=== PATIENT | male | born 1975 | race Caucasian/White ===

== ENCOUNTER 2019-03-19 16:28 | Emergency (ER) | payer SELFPAY, BC, OTHER | END 2019-03-19 17:55 | disposition left against medical advice (07) | LOC: E/R 17:55 | DX: Z53.21 Procedure and treatment not carried out due to patient leaving prior to being seen by health care provider (principal) ==

== ENCOUNTER 2019-03-20 14:38 | Inpatient (IN) | payer BC, OTHER ==
[2019-03-20] MEDS ORDERED: LORAZEPAM 2 MG INJ (15:27)
[2019-03-20] MEDS: LORAZEPAM 2 MG INJ IM (15:35)
[2019-03-20 16:26] LABS: ADD MAN DIFF? NO
[2019-03-20 16:27] LABS: BASOPHILS % 0.7 % (0.0-2.0); EOSINOPHILS % 0.2 % (0.0-7.0); HEMATOCRIT 34.9 % (42.0-52.0); HEMOGLOBIN 11.9 g/dl (14.0-18.0); LYMPHOCYTES # 1.9 10^3/ul (0.8-2.9); LYMPHOCYTES % 32.2 % (15.0-51.0); MEAN CORPUSCULAR HEMOGLOBIN 28.7 pg (29.0-33.0); MEAN CORPUSCULAR HGB CONC 34.1 g/dl (32.0-37.0); MEAN CORPUSCULAR VOLUME 84.1 fl (82.0-101.0); MEAN PLATELET VOLUME 10.3 fl (7.4-10.4); MONOCYTE # 0.4 10^3/ul (0.3-0.9); MONOCYTES % 6.7 % (0.0-11.0); NEUTROPHIL # 3.6 10^3/ul (1.6-7.5); PLATELET COUNT 168 10^3/UL (140-415); RED BLOOD COUNT 4.15 10^6/ul (4.70-6.10); RED CELL DISTRIBUTION WIDTH 18.2 % (11.5-14.5)
[2019-03-20] MEDS: DIAZEPAM 5 MG/ML SYG IV ×3 (16:29→17:51)
[2019-03-20] MEDS: SOD CHLORIDE 0.9% 1,000 ML IV (16:29)
[2019-03-20 16:47] LABS: ALANINE AMINOTRANSFERASE 79 IU/L (13-69); ALBUMIN 4.2 g/dl (3.3-4.9); ALBUMIN/GLOBULIN RATIO 1.31; ALKALINE PHOSPHATASE 98 IU/L (42-121); ANION GAP 8 (5-13); ASPARTATE AMINO TRANSFERASE 156 IU/L (15-46); BILIRUBIN,INDIRECT 0.4 mg/dl (0-1.1); BILIRUBIN,TOTAL 0.4 mg/dl (0.2-1.3); BLOOD UREA NITROGEN 6 mg/dl (7-20); CALCIUM 8.5 mg/dl (8.4-10.2); CARBON DIOXIDE 35 mmol/L (21-31); CHLORIDE 98 mmol/L (97-110); CREATININE 0.63 mg/dl (0.61-1.24); Estimated GFR > 60 mL/min (>60); GLUCOSE 103 mg/dl (70-220); LIPASE 234 U/L (23-300); POTASSIUM 3.8 mmol/L (3.5-5.1); SODIUM 141 mmol/L (135-144); TOTAL PROTEIN 7.4 g/dl (6.1-8.1)
[2019-03-20] MEDS: DEXTROSE 5%-0.45% NACL 500 ML BAG IV (17:03)
[2019-03-20] MEDS: FOLIC ACID 1 MG TAB PO (17:03)
[2019-03-20] MEDS: THIAMINE 100 MG TAB PO ×2 (17:04→22:36)
[2019-03-20] MEDS ORDERED: ONDANSETRON 4 MG INJ IV (18:00)
[2019-03-20] MEDS ORDERED: ACETAMINOPHEN 325 MG TAB PO (18:00)
[2019-03-20] MEDS ORDERED: NACL 0.9% 3 ML SYG IV (18:30)
[2019-03-20] MEDS ORDERED: HYDROCODONE/APAP (5/325) TAB PO (18:30)
[2019-03-20] MEDS: BUPROPION (XL) 150 MG TAB PO ×2 (20:34→21:00)
[2019-03-20] MEDS: METHYLPHENIDATE 5 MG TAB PO (20:34)
[2019-03-20] MEDS: CHLORDIAZEPOXIDE 25 MG CAP PO ×2 (21:00→23:04)
[2019-03-20] MEDS ORDERED: BUPROPION (XL) 150 MG TAB PO (21:00)
[2019-03-20] MEDS: QUETIAPINE 100 MG TAB PO (22:40)
[2019-03-20] MEDS: LORAZEPAM 2 MG INJ IV (23:12)
[2019-03-21] MEDS: LORAZEPAM 2 MG INJ IV (00:40)
[2019-03-21 01:59] LABS: AMPHETAMINE/METHAMPHETAMINE Negative (NEGATIVE); BARBITURATES Negative (NEGATIVE); CANNABINOIDS Negative (NEGATIVE); COCAINE Negative (NEGATIVE); OPIATES Negative (NEGATIVE)
[2019-03-21 02:02] LABS: BENZODIAZEPINES Positive (NEGATIVE)
[2019-03-21] MEDS: DIAZEPAM 5 MG/ML SYG IV (02:05)
[2019-03-21] MEDS: METOPROLOL 5 MG INJ IV (02:32)
[2019-03-21 05:43] LABS: ADD MAN DIFF? NO
[2019-03-21 05:49] LABS: BASOPHILS % 0.4 % (0.0-2.0); EOSINOPHILS # 0.1 10^3/ul (0.0-0.5); HEMATOCRIT 27.7 % (42.0-52.0); HEMOGLOBIN 9.3 g/dl (14.0-18.0); LYMPHOCYTES # 2.1 10^3/ul (0.8-2.9); LYMPHOCYTES % 41.9 % (15.0-51.0); MEAN CORPUSCULAR HEMOGLOBIN 28.9 pg (29.0-33.0); MEAN CORPUSCULAR HGB CONC 33.6 g/dl (32.0-37.0); MEAN PLATELET VOLUME 10.9 fl (7.4-10.4); MONOCYTE # 0.4 10^3/ul (0.3-0.9); NEUTROPHIL # 2.3 10^3/ul (1.6-7.5); NEUTROPHILS % 47.5 % (39.0-77.0); PLATELET COUNT 107 10^3/UL (140-415); RED BLOOD COUNT 3.22 10^6/ul (4.70-6.10); RED CELL DISTRIBUTION WIDTH 18.6 % (11.5-14.5)
[2019-03-21 05:49] LABS: WHITE BLOOD COUNT 4.9 10^3/ul (4.8-10.8)
[2019-03-21] MEDS: PANTOPRAZOLE (EC) 40 MG TAB PO (06:00)
[2019-03-21 06:38] LABS: ALANINE AMINOTRANSFERASE 53 IU/L (13-69); ALBUMIN 3.5 g/dl (3.3-4.9); ALBUMIN/GLOBULIN RATIO 1.45; ALKALINE PHOSPHATASE 73 IU/L (42-121); ANION GAP 9 (5-13); ASPARTATE AMINO TRANSFERASE 106 IU/L (15-46); BILIRUBIN,INDIRECT 0.4 mg/dl (0-1.1); BILIRUBIN,TOTAL 0.4 mg/dl (0.2-1.3); BLOOD UREA NITROGEN 11 mg/dl (7-20); CALCIUM 9.4 mg/dl (8.4-10.2); CARBON DIOXIDE 33 mmol/L (21-31); CHLORIDE 97 mmol/L (97-110); Estimated GFR > 60 mL/min (>60); GLUCOSE 110 mg/dl (70-220); POTASSIUM 3.6 mmol/L (3.5-5.1); SODIUM 139 mmol/L (135-144); TOTAL PROTEIN 5.9 g/dl (6.1-8.1)
[2019-03-21 07:39] LABS: HEMOGLOBIN A1C 5.9 % (0-5.9)
[2019-03-21] MEDS: BUPROPION (XL) 150 MG TAB PO (09:23)
[2019-03-21] MEDS: MULTIVITAMINS THERAPEUTIC TAB PO (09:23)
[2019-03-21] MEDS: THIAMINE 100 MG TAB PO (09:23)
[2019-03-21] MEDS: CHLORDIAZEPOXIDE 25 MG CAP PO (09:23)
[2019-03-21] MEDS: METHYLPHENIDATE 5 MG TAB PO (10:44)
[2019-03-21] MEDS ORDERED: BUPROPION (SR) 150 MG TAB PO (13:00)
== END 2019-03-21 12:43 | disposition left against medical advice (07) | DRG 894 ==
LOC: E/R 14:38 → 6WM 17:47
DX: F10.239 Alcohol dependence with withdrawal, unspecified (principal); E86.0 Dehydration; D64.9 Anemia, unspecified; F32.9 Major depressive disorder, single episode, unspecified
CPT/HCPCS: 36415; 70450; 80053; 80307; 83036; 83690; 85025; 87081; 96361; 96372; 96374; 96375; 99285-25